=== PATIENT | male | born 1985 | race Caucasian/White ===

== ENCOUNTER → 2016-03-10 | Outpatient (CLI) | payer OTHER ==
[~2016-03-10] MED LIST: ADDERALL30 MG PO; ANAPROX DS550 MG PO; CLARITIN10 MG PO; FLEXERIL10 MG PO; IRON FERROUS S325 MG PO; MEDROL DOSEPAK4 MG PO; MOTRIN800 MG PO; Nizoral 2%15 GM PO; PEN-VEE K500 MG PO; PEPCID20 MG PO; RISPERDAL1 MG PO; SEPTRA DS 800 M1 TAB PO; TRIAMCINOLONE AC0.1% T; VENLAFAXINE37.5 M1 PO; VOLTAREN50 MG PO; ZOLOFT100 MG PO; ZOLOFT50 MG PO
== END | disposition home or self-care (01) ==
LOC: CT 14:34
DX: M54.6 Pain in thoracic spine (principal); M54.5 Low back pain; R05 Cough

== ENCOUNTER 2017-06-15 16:20 | Emergency (ER) | payer OTHER ==
[~2017-06-15] VITALS: Ht 190.5 cm; Wt 113.4 kg
[2017-06-15 16:47] LABS: BASO % 0.5 % (0.0-1.0); EOS # 0.2 10*3/uL (0.0-0.4); HEMATOCRIT 48.7 % (42.0-52.0); HEMOGLOBIN 16.2 g/dl (14.0-18.0); LYMPH # 2.4 10*3/uL (1.3-4.4); LYMPH % 28.8 % (27.0-41.0); MEAN CELL VOLUME 91.9 fl (80.0-94.0); MEAN CORPUSCULAR HGB 30.6 pg (27.0-31.0); MEAN CORPUSCULAR HGB CONC 33.3 g/dl (33.0-37.0); MEAN PLATELET VOLUME 9.5 fl (9.6-12.3); MONO # 0.6 10*3/uL (0.1-1.0); MONO % 7.2 % (3.0-9.0); NEUT % 61.1 % (47.0-73.0); PLATELET COUNT AUTOMATED 207 10*3/uL (130-400); RED CELL DISTRI WIDTH 12.8 % (0-14.5); WHITE BLOOD COUNT 8.2 10*3/uL (4.8-10.8)
[2017-06-15 16:56] LABS: ACT PARTIAL THROMBO TIME 23.3 SECONDS (20.8-31.5)
[2017-06-15 17:06] LABS: ALBUMIN 3.8 gm/dl (3.1-4.5); ALKALINE PHOSPHATASE 72 U/L (45-117); BUN 16 mg/dl (7-24); CHLORIDE 109 mmol/L (98-107); CREATININE 1.19 mg/dL (0.70-1.30); POTASSIUM 4.5 mmol/L (3.5-5.1); SGOT/AST 23 IU/L (3-35); SGPT/ALT 43 U/L (12-78); SODIUM 143 mmol/L (136-145); TOTAL PROTEIN 7.9 gm/dL (6.4-8.2)
[2017-06-15 17:09] LABS: TROPONIN I < 0.015 ng/ml (<0.045)
[2017-06-15 17:29] VITALS: BP 142/79
== END 2017-06-15 17:40 | disposition left against medical advice (07) ==
LOC: ED 16:20
PROVIDERS: Student in an Organized Health Care Education/Training Program
DX: R07.89 Other chest pain (principal); F17.200 Nicotine dependence, unspecified, uncomplicated; Z79.899 Other long term (current) drug therapy; Z88.5 Allergy status to narcotic agent

== ENCOUNTER 2017-06-20 06:57 | Inpatient (IN) | payer OTHER ==
[~2017-06-20] VITALS: Ht 190.5 cm; Wt 139.8 kg
[2017-06-20] VITALS (9 sets, daily range): BP systolic 113–151; BP diastolic 56–92
--- NOTE | ~2017-06-20 | CON ---
[place], [place] REPORT OF CONSULTATION NAME: [facility]ILL[id number] UNIT #: [id number] ROOM: 427 DOCTOR: KVNG GALICIA MD BIRTHDATE: [birth year] DOS: 06/20/2017 CHIEF COMPLAINT: Chest pain radiating into the back. HISTORY OF PRESENT ILLNESS: The patient is a 31-year-old man who has no previous history of coronary artery disease. He denies any history of hypertension, diabetes or hyperlipidemia, but he does smoke and his father had heart disease in his 40s. He had a pacemaker at age 52 and by age 57. The patient was in his normal state of health until about 5 days ago. He was walking on level ground when he suddenly had a sharp central chest pain, which radiated into his back and made him feel weak. He states that it almost "took me to my knees." The patient thought it was indigestion and took Tums, but this did not seem to help. He went to the Emergency Room where he was advised admission, but refused and the pain resolved. 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 Once again, the pain was in the middle of his chest and went straight to his back. It was not associated with vomiting, diaphoresis or dyspnea. He came to the Emergency Room again. His electrocardiogram did show abnormal T-wave changes. Troponins were normal. A CT angiogram of the chest showed no evidence for pulmonary emboli or aortic dissection. It did show some thickening of the gallbladder wall. The patient was brought into the hospital and cardiac and surgical consults were requested. The patient is currently comfortable. He was sleeping when I entered the room, but awakened easily. He denied any chest pain, shortness of breath or nausea at this time. HISTORY OF PRESENT ILLNESS: Includes: 1. ADHD. 2. Depression with anger issues. 3. Gastritis. 4. Tobacco abuse. The patient smokes 1 pack per day. MEDICATIONS PRIOR TO ADMISSION: The patient is prescribed Adderall, Risperdal, and sertraline, but states he has been taking the medications in months. ALLERGIES: He lists an allergy to MORPHINE. FAMILY HISTORY: The patient's father had a history of diabetes and heart disease in his 40s. He had a pacemaker placed at age 50 and at age 57. His mother is from cancer. REVIEW OF SYSTEMS: The patient denies diplopia, loss of vision. He denies lightheadedness or syncope. Denies orthopnea or PND. Denies fevers, chills, sweats or recent weight change. He denies focal weakness. He does have the chest pains noted above. He denies diaphoresis or weight change. He denies change in bowel or bladder habits. Denies bleeding from his nose, mouth, urine or stool. He denies hemoptysis or hematemesis. He denies any lower extremity edema and denies any skin rashes. Remainder of the review of systems is negative except as noted above. [place], [place] REPORT OF CONSULTATION NAME: MARYLOU MORILLO UNIT #: [id number] ROOM: [facility] DOCTOR: KVNG GALICIA MD BIRTHDATE: [birth year] SOCIAL HISTORY: The patient does not drink alcohol or consume illicit drugs. He is a smoker. PHYSICAL EXAMINATION: GENERAL: The patient is a well-nourished white male who is awake, alert and oriented. VITAL SIGNS: Pulse is 60 and regular, blood pressure 144/76. He is afebrile. He weighs 139.8 kg and has a body mass index of 38.5. HEENT: Normocephalic and atraumatic. Extraocular muscles are intact. Sclerae are clear. Pupils equal, round and react to light. The oral mucosa is moist. Tongue is midline. NECK: Supple. He has no jugular distention. Carotids are full without bruits. He has no neck or supraclavicular masses and no thyromegaly. LUNGS: Respirations are unlabored. His chest is clear to auscultation and percussion. He has no presacral edema or chest wall tenderness. HEART: Has a regular rhythm with a soft S4 gallop, but no S3 or murmur. The PMI is not displaced. There is no precordial heave, lift or thrill. I could not reproduce his pain by palpation of the chest or epigastrium. ABDOMEN: Soft and normally active without masses, organomegaly or bruits. He did not have a Ortega sign. EXTREMITIES: Showed no edema. Peripheral pulses are easily palpated in the feet. IMAGING: I reviewed his electrocardiograms, they show sinus rhythm with inferolateral T-wave inversions. No diagnostic ST elevation is seen. As noted previously, CT angiogram showed no evidence for pulmonary emboli, aortic dissection or infiltrates. He does have some thickening of the gallbladder. LABORATORY DATA: Hemoglobin is 16, hematocrit 47.9, there are 10,800 white cells and 218,000 platelets. Sodium is 140, potassium 4.5, chloride 106, CO2 27, BUN 21, creatinine 0.9, serial troponin levels have been normal. IMPRESSION: 1. Atypical chest pain. The etiology of this is not clear. He does have an abnormal electrocardiogram, but the findings are nonspecific. His symptoms are suggestive, but not diagnostic of coronary ischemia. 2. Cigarette abuse. 3. Family history of heart disease in his father at a fairly young age. PLAN: The patient has ruled out for an acute myocardial infarction. We will plan on testing him further with an exercise myocardial perfusion study. If that is normal, then further evaluation of his GI tract would probably be in order. [facility] and I thank the hospitalist physicians for asking our advice regarding the patient's care. [place], [place] REPORT OF CONSULTATION NAME: MARYLOU MORILLO UNIT #: [id number] ROOM: 427 DOCTOR: KVNG GALICIA MD BIRTHDATE: [birth year] KVNG GALICIA MD CM:CONSTR:REPORT OF CONSULTATION 1511 06/20/17 [id number] interface
--- NOTE | ~2017-06-20 | PR ---
[place], [place] PROGRESS NOTE NAME: [id number] UNIT #: [id number] ROOM: 427 DOCTOR: KVNG GALICIA MD BIRTHDATE: [birth year] DOS: 06/21/2017 SUBJECTIVE: The patient was seen in the Cardiology Department just prior to his stress test today. He has had no further problems overnight and feels well today. Serial cardiac biomarkers have been normal. PHYSICAL EXAMINATION: VITAL SIGNS: On exam today he pulse is 57 and regular, blood pressure 140/76. He is afebrile. He weighs 139.8 kilograms. NECK: Supple. He has no jugular distention. LUNGS: Respirations are unlabored. HEART: Has regular rhythm with a soft S4 gallop. EXTREMITIES: Showed no edema. IMPRESSION: 1. Atypical chest pain, etiology to be determined. 2. Cigarette abuse. 3. Family history of heart disease in his father at a fairly young age. PLAN: We will proceed with an exercise myocardial perfusion study today. Further recommendations will depend upon the results of the stress test. KVNG GALICIA MD CM:PNTRANS [id number] KVNG GALICIA MD 06/22/17 1406 interface
[2017-06-20 07:21] LABS: BASO # 0.1 10*3/uL (0.0-0.1); BASO % 0.5 % (0.0-1.0); EOS # 0.3 10*3/uL (0.0-0.4); EOS % 2.4 % (1.0-4.0); HEMATOCRIT 47.9 % (42.0-52.0); LYMPH # 3.5 10*3/uL (1.3-4.4); LYMPH % 32.8 % (27.0-41.0); MEAN CORPUSCULAR HGB 30.1 pg (27.0-31.0); MEAN CORPUSCULAR HGB CONC 33.4 g/dl (33.0-37.0); MEAN PLATELET VOLUME 9.5 fl (9.6-12.3); MONO # 0.8 10*3/uL (0.1-1.0); MONO % 7.3 % (3.0-9.0); NEUT # 6.1 10*3/uL (2.3-7.9); NEUT % 56.4 % (47.0-73.0); PLATELET COUNT AUTOMATED 218 10*3/uL (130-400); RED BLOOD COUNT 5.32 10*6/uL (4.50-5.90); RED CELL DISTRI WIDTH 12.6 % (0-14.5); WHITE BLOOD COUNT 10.8 10*3/uL (4.8-10.8)
[2017-06-20 07:31] LABS: ACT PARTIAL THROMBO TIME 24.7 SECONDS (20.8-31.5)
[2017-06-20 07:48] LABS: ALBUMIN 3.8 gm/dl (3.1-4.5); BUN 21 mg/dl (7-24); CHLORIDE 106 mmol/L (98-107); POTASSIUM 4.5 mmol/L (3.5-5.1); SGOT/AST 35 IU/L (3-35); SGPT/ALT 38 U/L (12-78); SODIUM 140 mmol/L (136-145); TOTAL PROTEIN 7.5 gm/dL (6.4-8.2)
[2017-06-20 08:04] LABS: ALKALINE PHOSPHATASE 82 U/L (45-117)
[2017-06-20 08:18] LABS: TROPONIN I < 0.015 ng/ml (<0.045)
[2017-06-20] MEDS ORDERED: ADDERALL XR 3030 MG PO (10:45)
[2017-06-21] VITALS: BP 120/62
[2017-06-21 06:50] LABS: BASO # 0.1 10*3/uL (0.0-0.1); BASO % 0.4 % (0.0-1.0); EOS # 0.3 10*3/uL (0.0-0.4); EOS % 2.2 % (1.0-4.0); HEMATOCRIT 51.6 % (42.0-52.0); HEMOGLOBIN 17.3 g/dl (14.0-18.0); LYMPH # 3.1 10*3/uL (1.3-4.4); LYMPH % 26.1 % (27.0-41.0); MEAN CELL VOLUME 90.8 fl (80.0-94.0); MEAN CORPUSCULAR HGB 30.5 pg (27.0-31.0); MEAN CORPUSCULAR HGB CONC 33.5 g/dl (33.0-37.0); MEAN PLATELET VOLUME 9.3 fl (9.6-12.3); MONO # 0.8 10*3/uL (0.1-1.0); MONO % 6.7 % (3.0-9.0); NEUT # 7.6 10*3/uL (2.3-7.9); NEUT % 64.1 % (47.0-73.0); PLATELET COUNT AUTOMATED 227 10*3/uL (130-400); RED BLOOD COUNT 5.68 10*6/uL (4.50-5.90); RED CELL DISTRI WIDTH 12.7 % (0-14.5); WHITE BLOOD COUNT 11.8 10*3/uL (4.8-10.8)
[2017-06-21 07:09] LABS: ALBUMIN 3.4 gm/dl (3.1-4.5); ALKALINE PHOSPHATASE 75 U/L (45-117); BUN 14 mg/dl (7-24); CHLORIDE 107 mmol/L (98-107); CHOLESTEROL 141 mg/dL (<200); CREATININE 1.02 mg/dL (0.70-1.30); HDL CHOLESTEROL 29 mg/dl (40-60); LDL CHOLESTEROL 89 mg/dL (9-159); PHOSPHOROUS 3.2 mg/dL (2.5-4.9); POTASSIUM 4.2 mmol/L (3.5-5.1); SGOT/AST 20 IU/L (3-35); SGPT/ALT 35 U/L (12-78); SODIUM 142 mmol/L (136-145); TOTAL PROTEIN 7.6 gm/dL (6.4-8.2); TRIGLYCERIDES 117 mg/dl (<150); VLDL CHOLESTEROL 23 mg/dL (6-40)
[2017-06-21 07:28] LABS: ACT PARTIAL THROMBO TIME 24.7 SECONDS (20.8-31.5)
[2017-06-21 08:00] VITALS: BP 140/76
[2017-06-21 12:00] VITALS: BP 137/74
[2017-06-21] MEDS ORDERED: VITAMIN D-32000 UNI1 PO (14:53)
== END 2017-06-21 16:00 | disposition home or self-care (01) | DRG 392 ==
LOC: ED 06:57 → EDHOLD 09:36 → 4E 09:36
PROVIDERS: Emergency Medicine; Internal Medicine
PROC: 4A02XM4 Measurement of Cardiac Total Activity, External Approach (ICD-10-PCS; principal; 2017-06-21)
PROC: 3E073KZ Introduction of Other Diagnostic Substance into Coronary Artery, Percutaneous Approach (ICD-10-PCS; 2017-06-21)
DX: K21.9 Gastro-esophageal reflux disease without esophagitis (principal); E83.41 Hypermagnesemia; R07.89 Other chest pain; K81.1 Chronic cholecystitis; R00.1 Bradycardia, unspecified; R03.0 Elevated blood-pressure reading, without diagnosis of hypertension; K29.70 Gastritis, unspecified, without bleeding; M51.26 Other intervertebral disc displacement, lumbar region; F90.9 Attention-deficit hyperactivity disorder, unspecified type; F17.210 Nicotine dependence, cigarettes, uncomplicated; K82.8 Other specified diseases of gallbladder; F32.9 Major depressive disorder, single episode, unspecified; R45.4 Irritability and anger; E66.9 Obesity, unspecified; Z88.5 Allergy status to narcotic agent; Z79.899 Other long term (current) drug therapy; Z83.3 Family history of diabetes mellitus; Z71.6 Tobacco abuse counseling; Z82.49 Family history of ischemic heart disease and other diseases of the circulatory system; Z68.31 Body mass index [BMI] 31.0-31.9, adult; Z80.9 Family history of malignant neoplasm, unspecified

== ENCOUNTER → 2017-07-29 | Day surgery (SDC) | payer OTHER ==
[2017-07-27 11:18] LABS: BASO # 0.1 10*3/uL (0.0-0.1); BASO % 0.6 % (0.0-1.0); EOS # 0.2 10*3/uL (0.0-0.4); EOS % 2.6 % (1.0-4.0); HEMATOCRIT 48.6 % (42.0-52.0); HEMOGLOBIN 16.1 g/dl (14.0-18.0); LYMPH # 2.8 10*3/uL (1.3-4.4); LYMPH % 29.8 % (27.0-41.0); MEAN CORPUSCULAR HGB 30.1 pg (27.0-31.0); MEAN CORPUSCULAR HGB CONC 33.1 g/dl (33.0-37.0); MEAN PLATELET VOLUME 9.5 fl (9.6-12.3); MONO # 0.8 10*3/uL (0.1-1.0); MONO % 8.6 % (3.0-9.0); NEUT # 5.5 10*3/uL (2.3-7.9); NEUT % 58.1 % (47.0-73.0); PLATELET COUNT AUTOMATED 223 10*3/uL (130-400); RED BLOOD COUNT 5.34 10*6/uL (4.50-5.90); RED CELL DISTRI WIDTH 12.7 % (0-14.5); WHITE BLOOD COUNT 9.4 10*3/uL (4.8-10.8)
[2017-07-27 11:25] LABS: BILIRUBIN NEGATIVE (NEGATIVE); BLOOD NEGATIVE (NEGATIVE); CLARITY CLEAR (CLEAR); COLOR YELLOW (YELLOW); GLUCOSE NEGATIVE (NEGATIVE); KETONE NEGATIVE (NEGATIVE); LEUKO ESTERASE TRACE (NEGATIVE); NITRITE NEGATIVE (NEGATIVE); SPECIFIC GRAVITY >= 1.030 (1.005-1.030); UROBILINOGEN 0.2 E.U./dl (0.2-1.0)
[2017-07-27 11:50] LABS: ALBUMIN 3.8 gm/dl (3.1-4.5); BILIRUBIN, DIRECT 0.1 mg/dL (0.0-0.2); BUN 14 mg/dl (7-24); CHLORIDE 108 mmol/L (98-107); CREATININE 1.04 mg/dL (0.70-1.30); POTASSIUM 3.9 mmol/L (3.5-5.1); SGOT/AST 16 IU/L (3-35); SGPT/ALT 36 U/L (12-78); SODIUM 141 mmol/L (136-145); TOTAL PROTEIN 7.7 gm/dL (6.4-8.2)
[2017-07-27 11:51] LABS: ACT PARTIAL THROMBO TIME 25.3 SECONDS (20.8-31.5); ALKALINE PHOSPHATASE 79 U/L (45-117)
[2017-07-27 12:08] LABS: BACTERIA TRACE
[~2017-07-29] VITALS: Ht 190.5 cm; Wt 138.3 kg
[~2017-07-29] MED LIST changes: +ADDERALL XR 3030 MG PO; +NORCO 5-325 TA1 EACH PO; +VITAMIN D-32000 UNI1 PO
--- NOTE | ~2017-07-29 | O ---
[place], [place] OPERATIVE NOTE NAME[id number] UNIT #: [id number] ROOM: DOCTOR: JAI MOODY MD BIRTHDATE: [birth year] DOS: 07/29/2017 PREOPERATIVE DIAGNOSIS: Symptomatic gallstones. POSTOPERATIVE DIAGNOSIS: Symptomatic gallstones. PROCEDURE: Laparoscopic cholecystectomy. SURGEON: Jai Moody MD AIX SYSTEM ADMINISTRATOR: ADAM. ANESTHESIA: General with endotracheal intubation. INDICATIONS: This is a 31-year-old gentleman who is here for laparoscopic cholecystectomy for symptomatic gallstones. The procedure and its complications were explained to the patient in detail preoperatively. Complications that were discussed included but were not limited to bleeding, infection, hematoma/seroma/abscess formation, biloma formation, prolonged postoperative pain, damage to lying vital structures, inadvertent injury to the common bile duct and he agreed to proceed. DESCRIPTION OF PROCEDURE: After identifying the patient, the patient was brought to the operating suite and laid in the supine position. After induction of general anesthesia, timeout procedure was called and the parts were then painted and draped in the usual sterile fashion. An incision was made in a transverse fashion below the umbilicus. The skin and the subcutaneous tissue were incised in the line of the incision. The fascia was incised vertically and 2 stay sutures were taken on either side. The peritoneum was opened and a 12 mm Jer port was introduced into the peritoneal cavity. A pneumoperitoneum was created. Under direct vision, an epigastric incision of 10 mm and two 5 mm incisions were made in the right upper quadrant and appropriate sized ports were introduced. The gallbladder was retracted superiorly and laterally. Cystic duct and the cystic artery were carefully dissected until the critical view of safety was obtained and the triangle of Calot was identified. Thereafter, each of the structures were clipped 3 times and cut between the first and the second clip. The gallbladder was then removed from the bed of the gallbladder with the help of electrocautery. It was placed in an EndoCatch bag and removed from the peritoneal cavity and sent for histopathological diagnosis; thereafter, the bed of the gallbladder was inspected. There was no bleeding seen. At this point, the right upper quadrant and epigastric ports were removed and there was no bleeding seen. The umbilical port was also removed and pneumoperitoneum was decompressed. The stay sutures were tied together and an additional 0 Vicryl stitch was taken to close the fascia. Thereafter, 1% lidocaine was injected in all the 4 incisions and the skin was then approximated with the help of 4-0 Vicryl in a subcuticular running fashion. Dressings were placed. The patient tolerated procedure well. He was extubated uneventfully and brought back to the recovery room in stable fashion. There were no complications. Dr. Jai Moody, the attending surgeon, was present throughout the operating case. [place], [place] OPERATIVE NOTE NAME: MARYLOU MORILLO UNIT #: [id number] ROOM: DOCTOR: JAI MOODY MD BIRTHDATE: [birth year] Jai Moody MD CM:OPRECORD:OPERATIVE NOTE [id number] JAI MOODY MD 07/29/17 1022 interface
[2017-07-29 08:22] VITALS: BP 142/79
[2017-07-29 10:17] VITALS: BP 132/69
[2017-07-29 10:30] VITALS: BP 123/70
[2017-07-29 10:44] VITALS: BP 129/73
[2017-07-29 11:00] VITALS: BP 130/67
[2017-07-29 11:21] VITALS: BP 126/74
== END | disposition home or self-care (01) ==
LOC: SDC 07-27 09:30
PROVIDERS: Surgery
DX: K80.10 Calculus of gallbladder with chronic cholecystitis without obstruction (principal); F17.210 Nicotine dependence, cigarettes, uncomplicated; K21.9 Gastro-esophageal reflux disease without esophagitis; L40.9 Psoriasis, unspecified; F32.9 Major depressive disorder, single episode, unspecified; Z79.899 Other long term (current) drug therapy

== ENCOUNTER 2018-02-16 00:58 | Emergency (ER) | payer SELFPAY ==
[~2018-02-16] VITALS: Ht 190.5 cm; Wt 124.7 kg
[2018-02-16 01:00] VITALS: BP 148/97
[2018-02-16] MEDS ORDERED: ALLEGRA-D 24 H1 EACH PO (01:09)
[2018-02-16] MEDS ORDERED: CEFUROXIME AXE500 MG PO (01:09)
== END 2018-02-16 01:18 | disposition home or self-care (01) ==
LOC: ED 00:58
DX: H66.92 Otitis media, unspecified, left ear (principal); J39.2 Other diseases of pharynx; F17.200 Nicotine dependence, unspecified, uncomplicated; Z88.6 Allergy status to analgesic agent

== ENCOUNTER → 2019-02-27 | Outpatient (CLI) | payer OTHER ==
[~2019-02-27] MED LIST changes: +ALLEGRA-D 24 H1 EACH PO; +CEFUROXIME AXE500 MG PO
[2019-02-28 00:14] LABS: HEMATOCRIT 45.5 % (42.0-52.0); HEMOGLOBIN 15.2 g/dl (14.0-18.0); MEAN CELL VOLUME 91.4 fl (80.0-94.0); MEAN CORPUSCULAR HGB 30.5 pg (27.0-31.0); MEAN CORPUSCULAR HGB CONC 33.4 g/dl (33.0-37.0); MEAN PLATELET VOLUME 9.3 fl (9.6-12.3); PLATELET COUNT AUTOMATED 232 10*3/uL (130-400); RED BLOOD COUNT 4.98 10*6/uL (4.50-5.90); RED CELL DISTRI WIDTH 12.5 % (0-14.5); WHITE BLOOD COUNT 13.5 10*3/uL (4.8-10.8)
[2019-02-28 00:32] LABS: ALBUMIN 3.6 gm/dl (3.1-4.5); ALKALINE PHOSPHATASE 91 U/L (45-117); BUN 17 mg/dl (7-24); CHLORIDE 111 mmol/L (98-107); CREATININE 1.22 mg/dL (0.70-1.30); POTASSIUM 3.5 mmol/L (3.5-5.1); SGOT/AST 17 IU/L (3-35); SGPT/ALT 34 U/L (12-78); SODIUM 143 mmol/L (136-145); TOTAL PROTEIN 7.5 gm/dL (6.4-8.2)
[2019-02-28 00:46] LABS: ATYPICAL LYMPHS 2 % (0-0); BASOPHILS 1 % (0-1); PLATELET SUFFICIENCY NORMAL (NORMAL); TOTAL CELLS COUNTED 100 #CELLS
== END | disposition home or self-care (01) ==
LOC: LAB 23:35
PROVIDERS: Psychiatry & Neurology Psychiatry
DX: I10 Essential (primary) hypertension (principal)

== ENCOUNTER 2019-07-19 02:17 | Emergency (ER) | payer OTHER ==
[~2019-07-19] VITALS: Ht 1104 cm; Wt 129.3 kg
[2019-07-19 02:23] VITALS: BP 125/87
[2019-07-19] MEDS ORDERED: MIXED AMPHETAMI30 MG PO (02:27)
[2019-07-19] MEDS ORDERED: LISINOPRIL10 M1 PO (02:27)
[2019-07-19] MEDS ORDERED: TRAZODONE100 MG PO (02:28)
[2019-07-19 03:11] LABS: BASO # 0.1 10*3/uL (0.0-0.1); BASO % 0.4 % (0.0-1.0); EOS # 0.3 10*3/uL (0.0-0.4); EOS % 2.1 % (1.0-4.0); HEMATOCRIT 45.7 % (42.0-52.0); LYMPH # 4.1 10*3/uL (1.3-4.4); LYMPH % 30.3 % (27.0-41.0); MEAN CORPUSCULAR HGB 30.9 pg (27.0-31.0); MEAN CORPUSCULAR HGB CONC 34.4 g/dl (33.0-37.0); MONO % 7.8 % (3.0-9.0); NEUT # 7.9 10*3/uL (2.3-7.9); PLATELET COUNT AUTOMATED 240 10*3/uL (130-400); RED BLOOD COUNT 5.08 10*6/uL (4.50-5.90); WHITE BLOOD COUNT 13.4 10*3/uL (4.8-10.8)
[2019-07-19 03:22] LABS: BUN 19 mg/dl (7-24); CHLORIDE 108 mmol/L (98-107); POTASSIUM 3.7 mmol/L (3.5-5.1); SODIUM 140 mmol/L (136-145)
[2019-07-19] MEDS ORDERED: ANTI-ITCH28 GM T (05:16)
== END 2019-07-19 05:29 | disposition home or self-care (01) ==
LOC: ED 02:17
PROVIDERS: Emergency Medicine
DX: L55.0 Sunburn of first degree (principal); F32.9 Major depressive disorder, single episode, unspecified; K21.9 Gastro-esophageal reflux disease without esophagitis; I10 Essential (primary) hypertension; Z88.5 Allergy status to narcotic agent

== ENCOUNTER → 2019-11-15 | Outpatient (CLI) | payer OTHER ==
[~2019-11-15] MED LIST changes: +ANTI-ITCH28 GM T; +LISINOPRIL10 M1 PO; +MIXED AMPHETAMI30 MG PO; +TRAZODONE100 MG PO
== END | disposition home or self-care (01) ==
LOC: CT 13:51
PROVIDERS: ATTEND Podiatrist Foot & Ankle Surgery
DX: M89.8X7 Other specified disorders of bone, ankle and foot (principal)

== ENCOUNTER 2020-01-23 00:31 | Emergency (ER) | payer OTHER ==
[~2020-01-23] VITALS: Ht 190.5 cm
[2020-01-23 00:39] VITALS: BP 141/84
[2020-01-23 01:10] LABS: BASO # 0.1 10*3/uL (0.0-0.1); BASO % 0.6 % (0.0-1.0); EOS # 0.2 10*3/uL (0.0-0.4); EOS % 1.9 % (1.0-4.0); HEMATOCRIT 45.3 % (42.0-52.0); LYMPH % 32.9 % (27.0-41.0); MEAN CELL VOLUME 88.5 fl (80.0-94.0); MEAN CORPUSCULAR HGB 29.7 pg (27.0-31.0); MEAN CORPUSCULAR HGB CONC 33.6 g/dl (33.0-37.0); MEAN PLATELET VOLUME 9.1 fl (9.6-12.3); MONO # 0.8 10*3/uL (0.1-1.0); MONO % 6.9 % (3.0-9.0); NEUT % 57.3 % (47.0-73.0); PLATELET COUNT AUTOMATED 257 10*3/uL (130-400); RED BLOOD COUNT 5.12 10*6/uL (4.50-5.90); RED CELL DISTRI WIDTH 12.6 % (0-14.5); WHITE BLOOD COUNT 12.2 10*3/uL (4.8-10.8)
[2020-01-23 01:31] LABS: ALBUMIN 3.4 gm/dl (3.1-4.5); ALKALINE PHOSPHATASE 99 U/L (45-117); CHLORIDE 110 mmol/L (98-107); CREATININE 1.02 mg/dL (0.70-1.30); LIPASE 122 U/L (73-393); SGPT/ALT 45 U/L (12-78); SODIUM 144 mmol/L (136-145); TOTAL PROTEIN 7.1 gm/dL (6.4-8.2)
[2020-01-23 01:44] LABS: BUN 15 mg/dl (7-24); SGOT/AST 29 IU/L (3-35)
== END 2020-01-23 03:20 | disposition home or self-care (01) ==
LOC: ED 00:31
PROVIDERS: Nurse Practitioner Family
DX: R07.81 Pleurodynia (principal); R10.11 Right upper quadrant pain; K21.9 Gastro-esophageal reflux disease without esophagitis; I10 Essential (primary) hypertension; F90.9 Attention-deficit hyperactivity disorder, unspecified type; L40.9 Psoriasis, unspecified; F32.9 Major depressive disorder, single episode, unspecified; Z90.49 Acquired absence of other specified parts of digestive tract; Z88.5 Allergy status to narcotic agent; Z79.899 Other long term (current) drug therapy

== ENCOUNTER → 2020-02-06 | Outpatient (CLI) | payer OTHER | END | disposition home or self-care (01) | LOC: US 07:30 | PROVIDERS: ATTEND Nurse Practitioner Family | DX: K76.0 Fatty (change of) liver, not elsewhere classified (principal); I10 Essential (primary) hypertension ==

== ENCOUNTER → 2020-02-23 | Outpatient (CLI) | payer OTHER | END | disposition home or self-care (01) | LOC: CT 08:36 | PROVIDERS: ATTEND Nurse Practitioner Family | DX: K76.0 Fatty (change of) liver, not elsewhere classified (principal); K42.9 Umbilical hernia without obstruction or gangrene; Z90.49 Acquired absence of other specified parts of digestive tract ==

== ENCOUNTER 2020-07-21 01:41 | Emergency (ER) | payer OTHER ==
[~2020-07-21] VITALS: Ht 190.5 cm; Wt 156.0 kg
[2020-07-21 01:56] VITALS: BP 166/78
[2020-07-21 02:28] LABS: BASO # 0.1 10*3/uL (0.0-0.1); BASO % 0.8 % (0.0-1.0); EOS # 0.7 10*3/uL (0.0-0.4); EOS % 6.9 % (1.0-4.0); HEMATOCRIT 40.3 % (42.0-52.0); LYMPH # 2.6 10*3/uL (1.3-4.4); LYMPH % 24.8 % (27.0-41.0); MEAN PLATELET VOLUME 9.1 fl (9.6-12.3); MONO # 0.9 10*3/uL (0.1-1.0); MONO % 8.9 % (3.0-9.0); NEUT # 6.1 10*3/uL (2.3-7.9); PLATELET COUNT AUTOMATED 227 10*3/uL (130-400); RED BLOOD COUNT 4.43 10*6/uL (4.50-5.90); RED CELL DISTRI WIDTH 13.1 % (0-14.5); WHITE BLOOD COUNT 10.6 10*3/uL (4.8-10.8)
[2020-07-21 02:45] LABS: BUN 16 mg/dl (7-24); CHLORIDE 111 mmol/L (98-107); CREATININE 1.18 mg/dL (0.70-1.30); POTASSIUM 3.4 mmol/L (3.5-5.1); SODIUM 140 mmol/L (136-145)
[2020-07-21] MEDS ORDERED: CEPHALEXIN500 M1 PO (03:17)
== END 2020-07-21 03:35 | disposition home or self-care (01) ==
LOC: ED 01:41
PROVIDERS: Internal Medicine
DX: R60.0 Localized edema (principal); L03.116 Cellulitis of left lower limb; E87.6 Hypokalemia; Z79.899 Other long term (current) drug therapy

== ENCOUNTER 2020-09-02 23:54 | Emergency (ER) | payer OTHER ==
[~2020-09-02] VITALS: Ht 177.8 cm; Wt 108.9 kg
[~2020-09-02 23:54] MED LIST changes: +CEPHALEXIN500 M1 PO
[2020-09-03] MEDS ORDERED: CEFDINIR300 MG PO (00:07)
[2020-09-03 00:22] VITALS: BP 135/78
== END 2020-09-03 00:25 | disposition home or self-care (01) ==
LOC: ED 23:54
DX: H66.93 Otitis media, unspecified, bilateral (principal); F17.200 Nicotine dependence, unspecified, uncomplicated; Z79.899 Other long term (current) drug therapy; Z88.5 Allergy status to narcotic agent

== ENCOUNTER 2020-09-24 18:52 | Emergency (ER) | payer OTHER ==
[~2020-09-24] VITALS: Ht 190.5 cm; Wt 150.6 kg
[~2020-09-24 18:52] MED LIST changes: +CEFDINIR300 MG PO
[2020-09-24 19:20] VITALS: BP 153/91
[2020-09-24 19:43] LABS: BASO % 0.4 % (0.0-1.0); EOS # 0.2 10*3/uL (0.0-0.4); EOS % 1.7 % (1.0-4.0); HEMATOCRIT 45.3 % (42.0-52.0); LYMPH # 3.2 10*3/uL (1.3-4.4); MEAN CELL VOLUME 88.8 fl (80.0-94.0); MEAN CORPUSCULAR HGB 29.8 pg (27.0-31.0); MEAN CORPUSCULAR HGB CONC 33.6 g/dl (33.0-37.0); MEAN PLATELET VOLUME 9.1 fl (9.6-12.3); MONO # 0.9 10*3/uL (0.1-1.0); MONO % 8.5 % (3.0-9.0); NEUT % 58.1 % (47.0-73.0); PLATELET COUNT AUTOMATED 229 10*3/uL (130-400); RED CELL DISTRI WIDTH 13.2 % (0-14.5); WHITE BLOOD COUNT 10.4 10*3/uL (4.8-10.8)
[2020-09-24 20:00] LABS: ALBUMIN 3.8 gm/dl (3.1-4.5); ALKALINE PHOSPHATASE 78 U/L (45-117); BUN 16 mg/dl (7-24); CHLORIDE 108 mmol/L (98-107); CREATININE 0.99 mg/dL (0.70-1.30); POTASSIUM 3.4 mmol/L (3.5-5.1); SGOT/AST 21 IU/L (3-35); SGPT/ALT 36 U/L (12-78); SODIUM 140 mmol/L (136-145); TOTAL PROTEIN 7.9 gm/dL (6.4-8.2)
[2020-09-24 20:15] LABS: CPK 58 U/L (39-308)
[2020-09-24 20:22] LABS: ETHYL ALCOHOL < 3.0 mg/dl (<3)
[2020-09-24 20:23] LABS: ACETAMINOPHEN (TYLENOL) < 5.0 ug/ml (10-30)
[2020-09-24 21:24] LABS: BILIRUBIN Negative (Negative); BLOOD Negative (Negative); CLARITY Clear (Clear); COLOR Dark Yellow (Yellow); GLUCOSE Negative (Negative); KETONE Negative (Negative); LEUKO ESTERASE 1+ (Negative); NITRITE Negative (Negative); SPECIFIC GRAVITY >= 1.030 (1.001-1.030)
[2020-09-24 21:31] LABS: URINE AMPHETAMINES > 1000 (1000ng/ml); URINE BARBITURATES < 200 (200ng/ml); URINE BENZODIAZEPINES < 200 (200ng/ml); URINE CANNABINOIDS (THC) < 50 (50ng/ml); URINE COCAINE < 300 (300ng/ml); URINE METHADONE < 300 (300ng/ml); URINE OPIATES < 300 (300ng/ml)
[2020-09-24 21:40] LABS: EPITHELIAL CELLS 0-2
[2020-09-24 21:41] LABS: BACTERIA 2+; MUCOUS 2+
[2020-09-24 21:43] LABS: URINE PHENCYCLIDINE < 25 (25ng/ml)
== END 2020-09-24 22:30 | disposition home or self-care (01) ==
LOC: ED 18:52
PROVIDERS: Internal Medicine
DX: R44.1 Visual hallucinations (principal); F15.90 Other stimulant use, unspecified, uncomplicated; Z88.6 Allergy status to analgesic agent; Z79.899 Other long term (current) drug therapy

== ENCOUNTER 2020-09-26 20:10 | Emergency (ER) | payer OTHER ==
[~2020-09-26] VITALS: Wt 130.6 kg
[2020-09-26 20:14] VITALS: BP 131/81
[2020-09-26 21:20] LABS: BASO % 0.4 % (0.0-1.0); EOS # 0.1 10*3/uL (0.0-0.4); EOS % 1.7 % (1.0-4.0); HEMATOCRIT 45.4 % (42.0-52.0); LYMPH # 1.7 10*3/uL (1.3-4.4); LYMPH % 20.8 % (27.0-41.0); MEAN CELL VOLUME 88.7 fl (80.0-94.0); MEAN CORPUSCULAR HGB 29.7 pg (27.0-31.0); MEAN CORPUSCULAR HGB CONC 33.5 g/dl (33.0-37.0); MEAN PLATELET VOLUME 9.1 fl (9.6-12.3); MONO # 0.8 10*3/uL (0.1-1.0); MONO % 9.8 % (3.0-9.0); NEUT # 5.5 10*3/uL (2.3-7.9); NEUT % 66.9 % (47.0-73.0); PLATELET COUNT AUTOMATED 200 10*3/uL (130-400); RED BLOOD COUNT 5.12 10*6/uL (4.50-5.90); RED CELL DISTRI WIDTH 12.7 % (0-14.5); WHITE BLOOD COUNT 8.1 10*3/uL (4.8-10.8)
[2020-09-26 21:38] LABS: ALBUMIN 3.3 gm/dl (3.1-4.5); ALKALINE PHOSPHATASE 81 U/L (45-117); BUN 15 mg/dl (7-24); CHLORIDE 108 mmol/L (98-107); CPK 52 U/L (39-308); CREATININE 1.07 mg/dL (0.70-1.30); POTASSIUM 3.5 mmol/L (3.5-5.1); SGOT/AST 18 IU/L (3-35); SGPT/ALT 38 U/L (12-78); SODIUM 141 mmol/L (136-145); TOTAL PROTEIN 7.4 gm/dL (6.4-8.2)
[2020-09-26] MEDS ORDERED: OMNICEF300 MG PO (23:15)
[2020-09-26] MEDS ORDERED: Tobrex Ophth S2.5 ML OPH (23:52)
== END 2020-09-26 23:25 ==
LOC: ED 20:10
PROVIDERS: Emergency Medicine
DX: S16.1XXA Strain of muscle, fascia and tendon at neck level, initial encounter (principal); S09.90XA Unspecified injury of head, initial encounter; S05.02XA Injury of conjunctiva and corneal abrasion without foreign body, left eye, initial encounter; S05.01XA Injury of conjunctiva and corneal abrasion without foreign body, right eye, initial encounter; H70.93 Unspecified mastoiditis, bilateral; F17.200 Nicotine dependence, unspecified, uncomplicated; Z88.6 Allergy status to analgesic agent; Z79.899 Other long term (current) drug therapy; V89.2XXA Person injured in unspecified motor-vehicle accident, traffic, initial encounter; Y93.89 Activity, other specified; Y92.89 Other specified places as the place of occurrence of the external cause; Y99.8 Other external cause status

== ENCOUNTER → 2025-02-01 | Outpatient (CLI) | payer MEDICAID ==
[~2025-02-01] MED LIST changes: +OMNICEF300 MG PO; +Tobrex Ophth S2.5 ML OPH
[2025-02-01 18:12] LABS: MEAN CELL VOLUME 91.0 fl (80.0-94.0); MEAN CORPUSCULAR HGB 30.5 pg (27.0-31.0); MEAN PLATELET VOLUME 9.0 fl (9.6-12.3); NUCLEATED RED BLOOD CELL 0.0 % (0.0-0.0); NUCLEATED RED BLOOD CELL 0.0 10*3/uL (0.0-0.0); PLATELET COUNT AUTOMATED 234.0 10*3/uL (130-400); RED CELL DISTRI WIDTH 12.8 % (0-14.5)
[2025-02-01 18:38] LABS: BUN 13 mg/dl (9-23); CPK 188 U/L (34-171); LDL CHOLESTEROL 85 mg/dL (9-159); SGPT/ALT 33 U/L (5-49)
[2025-02-01 18:40] LABS: VITAMIN D, 25-HYDROXY 30.1 ng/mL (30-100)
== END | disposition home or self-care (01) ==
LOC: LAB 17:43
PROVIDERS: ATTEND Family Medicine
DX: E78.00 Pure hypercholesterolemia, unspecified (principal); E74.9 Disorder of carbohydrate metabolism, unspecified; E55.9 Vitamin D deficiency, unspecified; R53.83 Other fatigue